=== PATIENT | female | born 1965 | race Caucasian/White ===

== ENCOUNTER 2018-01-07 01:32 | Day surgery (SDC) | payer OTHER ==
[~2018-01-07] VITALS: Ht 167.6 cm; Wt 56.7 kg
[~2018-01-07 01:32] MED LIST: BACDS PO; BUP100 PO; BUPR300T55 PO; CITA-156 PO; GABA-549 PO; IBU800 PO; KET10 PO; LOR5/325 PO; PER PO; TRAZ50TA34 PO; [UNRECOGNIZED DRUG - CODE] PO
[2018-01-07 08:30] VITALS: BP 136/81
[2018-01-07] MEDS ORDERED: NORMOSOL R SOLN(*) 1000 ML BAG 1,000 ML IV PRN (09:00)
[2018-01-07] MEDS ORDERED: LIDOCAINE/SOD BICARB 8.4% SYR ID ONE (09:00)
[2018-01-07] MEDS ORDERED: PROPOFOL EMUL(*) 10MG/ML 20 ML 20 ML ONE (11:53)
--- NOTE | 2018-01-07 12:14 | Short(Outpt) Discharge Summary ---
Discharge Summary Reason for Hosp/Final Diag: (1) Colon cancer screening Status: Chronic Hospital Course & Plan: Colonoscopy with polypectomy x3 completed without problems. Departure Discharge to: Home, Self Care Discharge Instructions Home Meds Reported Medications Citalopram Hydrobromide (CELEXA) 20 Mg Tablet, 20 MG PO QDAY, #5 TAB 10/29/16 Gabapentin (GABAPENTIN) 300 Mg Capsule, 600 MG PO QHS, CAPSULE 10/29/16 Trazodone Hcl (TRAZODONE HCL) 50 Mg Tablet, 50 MG PO QHS 10/29/16 Diet: Regular Activity: As Tolerated Special Instructions: Your colonoscopy was completed without problems and your prep was excellent (Good Job!!). I removed 3 polyps from your colon, including a large polyp from the 1st part of your colon (your cecum). These were all sent to pathology. My office will call you in the next week or so and let you know what the polyps are and when your next colonoscopy should be (in 3, 5, or 10 years) depending on the pathology results. MARY LANDAVERDE MD Jan 07, 2018 12:14
[2018-01-07 12:15] VITALS: BP 110/70
[2018-01-07 12:17] VITALS: BP 108/72
[2018-01-07 12:30] VITALS: BP 121/82
== END 2018-01-07 12:50 | disposition home or self-care (01) ==
LOC: OR 01:32
PROVIDERS: ATTEND Surgery
DX: Z12.11 Encounter for screening for malignant neoplasm of colon (principal); D12.0 Benign neoplasm of cecum; D12.2 Benign neoplasm of ascending colon; K62.1 Rectal polyp
CPT/HCPCS: 00811; 45380; 45385; 88305; J2704